=== PATIENT | male | born 1940 | race Caucasian/White ===

== ENCOUNTER 2020-06-21 11:02 | Outpatient (CLI) | payer MEDICARE, OTHER, SELFPAY ==
--- NOTE | 2020-06-21 11:13 | USCV_ITS ---
Alonzo Canchola Age: 80 Gender: M : 1940 Exam Date: 06/21/2020 11:03 Ordering Phys: Rip Lockett DO Technologist: Exam Location: [facility] [place]_ Indication: DECREASED PULSES RIGHT LEFT Brachial 164.00 mmHg Brachial 174.00 mmHg Pressure (mmHg) Waveform Pressure (mmHg) Waveform 218.00 COAL SAMPLER 211.00 208.00 DPA 196.00 1.25 Ankle/Brachial Index 1.21 164.00 Pre-Exercise Toe Pressure 176.00 0.94 Pre-Exercise Toe/Brachial Index 1.01 FINDINGS Normal resting ABIs and TBIs bilaterally CONCLUSIONS No significant arterial obstruction, based on the above findings Dr Adelaida Ayala MD [facility] (Electronically Signed) Final Date: 22 June 2020 15:58 S
== END 2020-06-21 11:03 | disposition home or self-care (01) ==
PROVIDERS: Family Provider Internal Medicine; PCP Internal Medicine; Visit Provider Internal Medicine
DX: R09.89 Other specified symptoms and signs involving the circulatory and respiratory systems (principal)
CPT/HCPCS: 93922

== ENCOUNTER 2022-10-26 06:07 | Emergency (ER) | payer MEDICARE, OTHER, SELFPAY ==
[2022-10-26 06:12] VITALS: BP 177/78; PULSE 73; RESP 18; TEMP 36.7; O2SAT 94; BMI 34.7
--- NOTE | 2022-10-26 06:33 | ED_ITS ---
HPI - URI/Sore Throat General: Chief Complaint: General Medical Stated Complaint: cough,congestion Time Seen by Provider: 10/26/22 06:31 Source: patient Mode of arrival: ambulatory History of Present Illness: 82-year-old male presents emergency room with complaint of cough is been worsening over the last 4 days. Low-grade fever cough is nonproductive. At night cough seems to be worse he gets to the point where he states he cannot wear his CPAP well. No vomiting no diarrhea no anosmia. He has not had any chest pain or abdominal pain. Minimal sinus congestion no sore throat symptoms. His is also recently ill. MD elicited complaint: cough Onset (ago): day(s) (4) Consistency: intermittent Severity: moderate Able to tolerate fluids by mouth: Yes Exacerbating factors: nothing Relieving factors: nothing Context: sick contacts Associated symptoms: Reports congestion and cough; Deny abdominal pain, change in voice, chills, chest pain, diarrhea, epistaxis, ear or mastoid pain, fever(s), headache(s), myalgias, nasal congestion, nausea, rash, rhinorrhea, short of breath, sinus pain, stiffness, sore throat or vomiting Treatments prior to arrival: none Review of Systems Const: Denies: fever(s), chills, fatigue or malaise ENMT: Denies: ear or mastoid pain, nasal congestion, epistaxis or sinus pain Card: Denies: chest pain Resp: Reports: non-productive cough; Denies: dyspnea or productive cough GI: Denies: abdominal pain, nausea, vomiting or diarrhea : Denies: flank pain, dysuria, urinary frequency or urinary urgency Skin/Breast: Denies: rash or pruritus Neuro: Denies: headache(s) PFSH ED PFSH: Medical History Anticoagulant long-term use 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 Esophageal reflux Hyperlipidemia Phimosis Surgical History History of detached retina repair History of surgery on arm ELBOW SURGERY Hx of bilateral cataract extraction Hx of bilateral inguinal hernia repair Hx of circumcision Hx of laminectomy Hx of spinal surgery Hx of tonsillectomy Family History Mother , AT AGE 87 Stroke Father Stroke Other Cancer Diabetes Hypertension Social History Smoking and tobacco status: former smoker Alcohol intake: unknown Adopted: No Caregiver/support person: No Lives independently: No Household members: spouse Marital status: Current occupational status: retired Physical Exam Const: COMMON NORMALS: no acute distress GENERAL APPEARANCE: cooperative and comfortable ORIENTATION/CONSCIOUSNESS: Yes awake, Yes oriented to person, Yes oriented to place and Yes oriented to time HENMT: COMMON NORMALS: normocephalic, atraumatic, hearing grossly normal bilaterally, external ears normal, EAC's normal, TM's normal bilaterally, Normal nasal mucous membranes and turbinates present, moist oral mucous membranes and oropharynx normal HEAD & SCALP: normocephalic and atraumatic NOSE: Normal nasal mucous membranes and turbinates present EXTERNAL EAR: Yes external ears normal EXTERNAL AUDITORY CANAL: EAC's normal TYMPANIC MEMBRANE: TM's normal bilaterally Neck/C-Spine: COMMON NORMALS: full ROM, no lymphadenopathy, supple and no JVD Resp: COMMON NORMALS: normal respiratory effort, No retractions, No use of accessory muscles and clear to auscultation bilaterally AUSCULTATION: clear to auscultation bilaterally Cardio: COMMON NORMALS: no JVD, regular rate, regular rhythm and No murmurs present (Cardio) RATE: regular rate RHYTHM: regular rhythm GI: COMMON NORMALS: Soft to palpation and No hepatosplenomegaly present AUSCULTATION: Yes normoactive bowel sounds PALPATION: Yes Soft to palpation, No Tenderness to palpation present (GI), No Guarding due to palpation present (GI) and Yes No hepatosplenomegaly present Extremity: COMMON NORMALS: normal to inspection, capillary refill normal, no clubbing, cyanosis or edema, no calf tenderness and no pedal edema Neuro: SENSORIUM/ORIENTATION: Yes oriented to person, Yes oriented to place and Yes oriented to time Skin: COMMON NORMALS: no rashes or lesions noted GENERAL SKIN EXAM: no rashes or lesions noted Course Vital Signs: Vital signs: Vital Signs Temperature 98.0 F 10/26/22 06:12 Pulse Rate 73 10/26/22 06:12 Respiratory Rate 18 10/26/22 06:12 Blood Pressure 177/78 10/26/22 06:12 Pulse Oximetry 94 10/26/22 06:12 MDM - URI/Sore Throat Medical Decision Making Viral upper respiratory infection his lung sounds are clear his sats are good he is in no acute distress. Recommend just cough medicine as needed follow-up with primary care doctor as needed Medical Records I reviewed the patient's medical records. Discharge Plan Discharge Patient Disposition: Home Clinical Impression: Viral URI with cough Condition: Stable Prescriptions: New promethazine-codeine 6.25-10 mg/5 mL syrup 10 ml PO Q4H PRN (Reason: cough) Qty: 473 0RF No Action venlafaxine 100 mg tablet 100 mg PO DAILY gemfibrozil 600 mg tablet 600 mg PO DAILY warfarin 5 mg tablet 5 mg PO DAILY amlodipine 5 mg tablet 5 mg PO DAILY oxybutynin chloride 5 mg tablet 5 mg PO BID doxazosin 8 mg tablet 8 mg PO DAILY gabapentin 600 mg tablet 600 mg PO TID omeprazole 20 mg capsule,delayed release(DR/EC) 20 mg PO BID timolol 0.5 % drops 1 drop ophthalmic (eye) DAILY finasteride 5 mg tablet 5 mg PO DAILY Discharge Orders: Discharge ED (Routine); Ordered 10/26/22 Ordered By: Thomas Oreilly Referrals: Rip Lockett, [Primary Care Provider] - Discharge Diet: Usual diet Discharge Activity: Resume usual activity Patient Instructions: Opioid Safety, Pain Management Activity Restrictions/Additional Instructions: You were seen today for cough. He vital signs are stable based on your exam appears to be viral upper respiratory infection. Supportive cares are all that is indicated at this point. Prescription was given for cough medicine you can use as needed. The prescription will make you somewhat tired. Follow-up with your primary care doctor as needed. Coding Level of Care Code ED Compressor Station Engineer for Kimberly Bentley
[2022-10-26 06:49] VITALS: BP 166/79; PULSE 74; RESP 18; TEMP 36.7; O2SAT 94
== END 2022-10-26 06:55 | disposition home or self-care (01) ==
PROVIDERS: Emergency Provider Family Medicine; PCP Internal Medicine
DX: J06.9 Acute upper respiratory infection, unspecified (principal); Z79.01 Long term (current) use of anticoagulants; Z87.891 Personal history of nicotine dependence; E78.5 Hyperlipidemia, unspecified
CPT/HCPCS: 99283

== ENCOUNTER 2023-04-20 08:59 | Emergency (ER) | payer MEDICARE, SELFPAY ==
[2023-04-20 09:08] VITALS: BP 129/74; PULSE 64; RESP 14; TEMP 36.6; O2SAT 95; BMI 34.4
--- NOTE | 2023-04-20 09:18 | XRR_ITS ---
PROCEDURE INFORMATION: Exam: XR Right Tibia and Fibula Exam date and time: 04/20/2023 9:33 AM Age: 83 years old Clinical indication: Injury or trauma; Fall; Blunt trauma; Lower leg; Right; Additional info: Trauma, pain, ecchymosis TECHNIQUE: Imaging protocol: Radiologic exam of the right tibia and fibula. Views: 2 views. COMPARISON: No relevant prior studies available. FINDINGS: Bones/joints: Osseous structures are intact. No fracture or malalignment. Visualized joint surfaces are preserved. Soft tissues: Unremarkable. XR/XR tibia fibula RT 2V [id number] IMPRESSION: Negative exam. No acute bony abnormalities.
--- NOTE | 2023-04-20 09:18 | CTR_ITS ---
PROCEDURE INFORMATION: Exam: CT Head Without Contrast Exam date and time: 04/20/2023 9:39 AM Age: 83 years old Clinical indication: Injury or trauma; Fall; Blunt trauma (contusions or hematomas); Without loss of consciousness; Additional info: Fall from lawmower, anticoagulated TECHNIQUE: Imaging protocol: Computed tomography of the head without contrast. Radiation optimization: All CT scans at this facility use at least one of these dose optimization techniques: automated exposure control; mA and/or kV adjustment per patient size (includes targeted exams where dose is matched to clinical indication); or iterative reconstruction. REPORTING DATA: Count of CT and Cardiac NM exams in prior 12 months: This patient has received 0 known CTs and 0 known cardiac nuclear medicine studies in the 12 months prior to the current study. COMPARISON: CT cervical spin wo con* [id number] 11/05/2016 10:15 AM RADIATION DOSE METRICS: Total DLP (mGy-cm): 994.88 FINDINGS: Brain: No intracranial hemorrhage. No mass effect, edema or midline shift. There are vague areas of decreased attenuation within the periventricular white matter likely secondary to chronic microvascular changes. Mild age related cerebral volume loss resulting in prominence of cortical sulci. Cerebral ventricles: Unremarkable for age and degree of cerebral volume loss. Paranasal sinuses: Visualized sinuses are unremarkable. No fluid levels. Mastoid air cells: Visualized mastoid air cells are well aerated. Bones/joints: Unremarkable. No acute fracture. Soft tissues: Unremarkable. CT/CT head wo con* [id number] IMPRESSION: No acute intracranial abnormality.
--- NOTE | 2023-04-20 09:18 | XRR_ITS ---
PROCEDURE INFORMATION: Exam: XR Right Ankle Exam date and time: 04/20/2023 9:33 AM Age: 83 years old Clinical indication: Injury or trauma; Fall; Blunt trauma; Ankle; Right; Additional info: Trauma, pain, ecchymosis TECHNIQUE: Imaging protocol: Radiologic exam of the right ankle. Views: 3 or more views. COMPARISON: No relevant prior studies available. FINDINGS: Bones/joints: Osseous structures are intact. No fracture or malalignment. Visualized joint surfaces are preserved. Soft tissues: Unremarkable. XR/XR ankle RT min 3V* [id number] IMPRESSION: Negative exam. No acute bony abnormalities.
--- NOTE | 2023-04-20 09:18 | USR_ITS ---
PROCEDURE INFORMATION: Exam: US Right Non-Vascular Joint or Other Extremity Structure Exam date and time: 04/20/2023 10:05 AM Age: 83 years old Clinical indication: Edema is localized; Lower leg; Right; Additional info: Hematoma to RT calf with HX of dvt; Anticoagulated TECHNIQUE: Imaging protocol: Right US joint or other nonvascular extremity structure or structures. Real-time ultrasound with image documentation. Limited study. Exam focused on the lower extremity in the region of clinical interest. COMPARISON: CR (LOW EXM, ) 04/20/2023 9:33 AM FINDINGS: Soft tissues: Ultrasound targeted to the area of interest right calf calcis demonstrate underlying cystic or solid mass. There is no fluid collection. No organized hematoma identified. Underlying soft tissue architecture is unremarkable. US/US soft tissue/extremity [id number] IMPRESSION: Negative ultrasound exam targeted to the right calf.
--- NOTE | 2023-04-20 09:20 | W.ED.EXTPRO ---
HPI - Extremity Problem General: Chief complaint: Extremity Injury, Lower Stated complaint: Right Leg Swelling and hurting Time Seen by Provider: 04/20/23 09:07 History of Present Illness: Mr. Canchola is an 83-year-old man that presents to the emergency department with right leg pain. States that on Friday he fell from his lawnmower. He denies striking his head or LOC but did land on his left shoulder and caught his right leg on the mower. He has a large hematoma to the medial aspect of the right calf and ankle. He has no open wounds. No pain with active dorsiflexion of the great toe and ankle Patient is anticoagulated on warfarin. 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 Patient also has history of hypertension Associated symptoms: Deny chest pain, fever(s) or rash Review of Systems General: Reports: 10 or more systems reviewed and unremarkable except in HPI and below Const: Denies: fever(s), chills, change in appetite, change in weight, fatigue or malaise Eyes: Denies: change in vision, eye discomfort, eye discharge or eye redness ENMT: Denies: throat pain, enlarged tonsils, odynophagia, hoarseness, ear or mastoid pain, ear discharge, change in hearing, tinnitus, nasal discharge, nasal congestion, post nasal drip or sinus pain Card: Denies: chest pain, palpitations, irregular heart rhythm, edema, dyspnea on exertion, orthopnea or leg pain with exertion Resp: Denies: dyspnea, productive cough, non-productive cough, wheezing, stridor or chest congestion GI: Denies: abdominal pain, nausea, vomiting, dysphagia, diarrhea, constipation, bloating, GI cramping or hematochezia : Denies: flank pain, dysuria, urinary frequency, urinary urgency, urinary hesitancy, oliguria or hematuria Musc: Denies: neck pain, back pain, extremity pain, joint pain, joint swelling, joint redness, joint warmth or muscle weakness Skin/Breast: Denies: rash, pruritus, erythema, photosensitivity or new lesions Neuro: Denies: headache(s), numbness in extremities, weakness in extremities, sensory changes, lack of coordination, difficulty walking, frequent falls, dizziness, confusion, Slurred speech present, difficulty communicating thoughts, seizure-like activity or involuntary movements Endo: Denies: polyuria, polydipsia or tired all the time Jus/Lymph: Reports: easy bruising, easy bleeding and other (Anticoagulated on warfarin) PFSH ED PFSH: Medical History (Updated 04/20/23 @ 11:29 by TASH De Luna) Anticoagulant long-term use 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 Esophageal reflux Hyperlipidemia Phimosis Surgical History History of detached retina repair History of surgery on arm ELBOW SURGERY Hx of bilateral cataract extraction Hx of bilateral inguinal hernia repair Hx of circumcision Hx of laminectomy Hx of spinal surgery Hx of tonsillectomy Family History Mother , AT AGE 87 Stroke Father Stroke Other Cancer Diabetes Hypertension Social History Smoking and tobacco status: former smoker Alcohol intake: unknown Substance/Drug Use: unknown Adopted: No Caregiver/support person: No Lives independently: No Household members: spouse Marital status: Current occupational status: retired Physical Exam Const: COMMON NORMALS: no acute distress, patient oriented x3 and alert GENERAL APPEARANCE: cooperative ORIENTATION/CONSCIOUSNESS: Yes awake, Yes oriented to person, Yes oriented to place and Yes oriented to time HENMT: COMMON NORMALS: normocephalic and atraumatic HEAD & SCALP: normocephalic and atraumatic FACE & SINUS: normal facial exam MOUTH: Normal oral and palatal mucosa present THROAT: posterior oropharynx normal Eye: COMMON NORMALS: Equal, round and reactive pupils present, EOMs intact bilaterally, conjunctivae normal and no scleral icterus GENERAL EYE: appearance normal, both eyes and all related structures ALIGNMENT: Yes alignment normal PERIORBITAL: periorbital findings normal CONJUNCTIVA: Yes conjunctivae normal PUPIL: Yes Equal, round and reactive pupils present Neck/C-Spine: COMMON NORMALS: full ROM GENERAL: Yes normal visual inspection Lymph: LYMPHATIC: no lymphadenopathy noted Chest: COMMONS NORMALS: normal inspection of the chest Breast/axilla inspection: Yes no chest deformity, asymmetry, normal contours, no nodules, masses, tenderness Resp: COMMON NORMALS: normal respiratory effort, No retractions, No use of accessory muscles and clear to auscultation bilaterally EFFORT & INSPECTION: Yes able to speak in complete sentences and Yes symmetric chest movement AUSCULTATION: clear to auscultation bilaterally Cardio: COMMON NORMALS: regular rate, regular rhythm and Peripheral pulses 2+ throughout RATE: regular rate RHYTHM: regular rhythm PERIPHERAL PULSES: Peripheral pulses 2+ throughout GI: COMMON NORMALS: Normal to inspection, nondistended, normoactive bowel sounds present, Soft to palpation, non-tender and No hepatosplenomegaly present INSPECTION: Yes normal to inspection AUSCULTATION: Yes normoactive bowel sounds PALPATION: Yes Soft to palpation and Yes No hepatosplenomegaly present RECTAL EXAM: Yes deferred Extremity: COMMON NORMALS: full ROM, no joint enlargement and no calf tenderness; negative for normal to inspection NARRATIVE EXTREMITY EXAM: Right lower extremity: Skin is clean dry and intact Ecchymosis noted to the medial aspect of the right calf as well as the ankle Edema present Calf does have some tenderness but it appears to be related to the hematoma present He has full active range of motion of the hip, knee He has active dorsiflexion plantarflexion of the foot and great toe Sensations intact to light touch at medial, lateral, dorsal, plantar surface of the foot and first webspace DP pulses palpable and cap refills less than 3 seconds Neuro: COMMON NORMALS: patient oriented x3 SENSORIUM/ORIENTATION: Yes alert, Yes oriented to person, Yes oriented to place and Yes oriented to time CRANIAL NERVES: Yes CN normal except as noted Psych: COMMON NORMALS: mental status grossly normal, Normal thought process present, cooperative, activity/motor behavior normal, denies homicidal ideation and denies suicidal ideation THOUGHT PROCESS: Normal thought process present Skin: COMMON NORMALS: no rashes or lesions noted, no wounds and turgor normal GENERAL SKIN EXAM: no rashes or lesions noted and turgor normal Course Vital Signs: Vital signs: Vital Signs Temperature 97.8 F 04/20/23 09:08 Pulse Rate 56 L 04/20/23 11:23 Respiratory Rate 14 04/20/23 09:08 Blood Pressure 162/85 04/20/23 11:23 Pulse Oximetry 93 04/20/23 11:23 Oxygen Delivery Me thod Room Air, Nasal C annula 04/20/23 09:08 MDM - Extremity (Nontraumatic) Medical Decision Making Patient is a 83-year-old anticoagulated male that had a fall from a lawnmower on Friday. Patient states that he has been treating himself at home with ibuprofen, Tylenol, ice and heat. Pain has increased over the last 24 hours towards no longer tolerable. He has a hematoma noted to the right calf as well as ecchymosis to the ankle. Patient underwent XR imaging of the right tibia and ankle. CT imaging of the head due to fall and being anticoagulated Negative head CT Negative XR of the ankle and tibia Ultrasound of the right lower extremity reveals no superficial or deep thrombus. He does have edema noted to the soft tissue as well as a hematoma. From a neurovascular standpoint he is intact Patient was staffed with Dr. Summers Patient has been cleared for discharge Patient is to continue all current medications. He can continue using ice and heat. He should rest and elevate the extremity All questions answered Lab Data Radiology Impressions Ankle X-Ray 04/20/23 09:18 IMPRESSION: Negative exam. No acute bony abnormalities. Head CT 04/20/23 09:18 IMPRESSION: No acute intracranial abnormality. Tibia/Fibula X-Ray 04/20/23 09:18 IMPRESSION: Negative exam. No acute bony abnormalities. Discharge Plan Discharge Patient Disposition: Home Clinical Impression: Hematoma Condition: Stable Prescriptions: No Action venlafaxine 100 mg tablet 100 mg PO DAILY gemfibrozil 600 mg tablet 600 mg PO DAILY warfarin 5 mg tablet 5 mg PO DAILY amlodipine 5 mg tablet 5 mg PO DAILY oxybutynin chloride 5 mg tablet 5 mg PO BID doxazosin 8 mg tablet 8 mg PO DAILY gabapentin 600 mg tablet 600 mg PO TID omeprazole 20 mg capsule,delayed release(DR/EC) 20 mg PO BID timolol 0.5 % drops 1 drop ophthalmic (eye) DAILY finasteride 5 mg tablet 5 mg PO DAILY promethazine-codeine 6.25-10 mg/5 mL syrup 10 ml PO Q4H PRN (Reason: cough) Qty: 473 0RF Discharge Orders: Discharge ED (Routine); Ordered 04/20/23 Ordered By: Efe Wade Referrals: Rip Lockett DO [Primary Care Provider] - Discharge Diet: Advance as tolerated Discharge Activity: Resume usual activity Patient Instructions: Pain Management Activity Restrictions/Additional Instructions: These return to the emergency department for new, concerning, worsening symptoms Coding Level of Care Code ED Prepress Supervisor for Kimberly Bentley
[2023-04-20 09:59] VITALS: BP 172/80; PULSE 56; O2SAT 94
[2023-04-20 10:41] VITALS: BP 189/72; PULSE 53; O2SAT 93
[2023-04-20 11:23] VITALS: BP 162/85; PULSE 56; O2SAT 93
[2023-04-20 11:42] VITALS: BP 162/85; PULSE 56; O2SAT 93
== END 2023-04-20 11:42 | disposition home or self-care (01) ==
PROVIDERS: Emergency Provider Nurse Practitioner; PCP Internal Medicine
DX: S80.11XA Contusion of right lower leg, initial encounter (principal); S90.01XA Contusion of right ankle, initial encounter; W31.89XA Contact with other specified machinery, initial encounter; R60.0 Localized edema; I10 Essential (primary) hypertension; Z79.01 Long term (current) use of anticoagulants; Z86.718 Personal history of other venous thrombosis and embolism
CPT/HCPCS: 70450; 73590; 73610; 76882; 99284